=== PATIENT | female | born 1985 | race Caucasian/White ===

== ENCOUNTER 2017-10-07 18:30 | Emergency (ER) | payer MEDICAID ==
[2017-10-07] MEDS: ONDANSETRON 4 MG INJ IV (19:47)
[2017-10-07] MEDS: morphine 4 MG/ML VIAL IV (19:47)
[2017-10-07 20:03] LABS: ADD MAN DIFF? NO
[2017-10-07 20:04] LABS: BASOPHILS % 0.2 % (0.0-2.0); EOSINOPHILS # 0.1 10^3/ul (0.0-0.5); EOSINOPHILS % 0.5 % (0.0-7.0); HEMATOCRIT 39.8 % (37.0-47.0); HEMOGLOBIN 13.9 g/dl (12.0-16.0); LYMPHOCYTES # 1.7 10^3/ul (0.8-2.9); LYMPHOCYTES % 12.6 % (15.0-51.0); MEAN CORPUSCULAR HEMOGLOBIN 31.3 pg (29.0-33.0); MEAN CORPUSCULAR HGB CONC 34.9 g/dl (32.0-37.0); MEAN CORPUSCULAR VOLUME 89.6 fl (82.0-101.0); MEAN PLATELET VOLUME 11.8 fl (7.4-10.4); MONOCYTE # 0.6 10^3/ul (0.3-0.9); MONOCYTES % 4.5 % (0.0-11.0); NEUTROPHILS % 81.9 % (39.0-77.0); PLATELET COUNT 231 10^3/UL (140-415); RED BLOOD COUNT 4.44 10^6/ul (4.20-5.40); RED CELL DISTRIBUTION WIDTH 11.9 % (11.5-14.5)
[2017-10-07 20:04] LABS: WHITE BLOOD COUNT 13.5 10^3/ul (4.8-10.8)
[2017-10-07 20:22] LABS: ALANINE AMINOTRANSFERASE 163 IU/L (13-69); ALBUMIN 4.9 g/dl (3.3-4.9); ALBUMIN/GLOBULIN RATIO 1.36; ALKALINE PHOSPHATASE 69 IU/L (42-121); ANION GAP 19 (8-16); ASPARTATE AMINO TRANSFERASE 211 IU/L (15-46); BILIRUBIN,INDIRECT 0.5 mg/dl (0-1.1); BILIRUBIN,TOTAL 0.5 mg/dl (0.2-1.3); BLOOD UREA NITROGEN 14 mg/dl (7-20); CALCIUM 9.4 mg/dl (8.4-10.2); CARBON DIOXIDE 25 mmol/L (21-31); CHLORIDE 105 mmol/L (97-110); CREATININE 0.59 mg/dl (0.44-1.00); GLUCOSE 167 mg/dl (70-220); LIPASE 308 U/L (23-300); POTASSIUM 3.4 mmol/L (3.5-5.1); SODIUM 146 mmol/L (135-144); TOTAL PROTEIN 8.5 g/dl (6.1-8.1)
[2017-10-07 22:24] LABS: ADD UMIC YES; UR ASCORBIC ACID 40 mg/dL (NEGATIVE); UR BILIRUBIN (Dip) NEGATIVE (NEGATIVE); UR BLOOD (Dip) NEGATIVE (NEGATIVE); UR CLARITY CLEAR (CLEAR); UR COLOR YELLOW (YELLOW); UR GLUCOSE (Dip) 1+ mg/dL (NEGATIVE); UR KETONES (Dip) NEGATIVE (NEGATIVE); UR LEUKOCYTE ESTERASE (Dip) NEGATIVE Leu/ul (NEGATIVE); UR MUCUS MANY /HPF (NONE SEEN); UR NITRITE (Dip) NEGATIVE (NEGATIVE); UR RBC 3 /HPF (0-5); UR SPECIFIC GRAVITY (Dip) 1.027 (1.003-1.030); UR TOTAL PROTEIN (Dip) 1+ mg/dl (NEGATIVE); UR UROBILINOGEN (Dip) 1+ mg/dL (NEGATIVE); UR WBC 2 /HPF (0-5)
== END 2017-10-08 01:48 | disposition home or self-care (01) ==
LOC: FTE 10-08 01:48
DX: R10.84 Generalized abdominal pain (principal); R11.0 Nausea; R10.2 Pelvic and perineal pain
CPT/HCPCS: 36415; 74176; 80053; 81001; 81025; 83690; 85025; 96374; 96375; 99285-25

== ENCOUNTER 2017-10-09 09:05 | Inpatient (IN) | payer MEDICAID ==
[2017-10-09] MEDS: ONDANSETRON 4 MG INJ IV (09:37)
[2017-10-09] MEDS: morphine 4 MG/ML VIAL IV (09:38)
[2017-10-09] MEDS: SOD CHLORIDE 0.9% 1,000 ML IV (09:38)
[2017-10-09 09:49] LABS: ADD MAN DIFF? NO
[2017-10-09 09:51] LABS: WHITE BLOOD COUNT 8.6 10^3/ul (4.8-10.8)
[2017-10-09 09:51] LABS: BASOPHILS % 0.2 % (0.0-2.0); EOSINOPHILS % 0.3 % (0.0-7.0); HEMATOCRIT 40.8 % (37.0-47.0); HEMOGLOBIN 13.9 g/dl (12.0-16.0); LYMPHOCYTES # 1.1 10^3/ul (0.8-2.9); LYMPHOCYTES % 12.3 % (15.0-51.0); MEAN CORPUSCULAR HEMOGLOBIN 30.7 pg (29.0-33.0); MEAN CORPUSCULAR HGB CONC 34.1 g/dl (32.0-37.0); MEAN CORPUSCULAR VOLUME 90.1 fl (82.0-101.0); MEAN PLATELET VOLUME 11.6 fl (7.4-10.4); MONOCYTE # 0.2 10^3/ul (0.3-0.9); MONOCYTES % 2.7 % (0.0-11.0); NEUTROPHIL # 7.3 10^3/ul (1.6-7.5); NEUTROPHILS % 84.2 % (39.0-77.0); PLATELET COUNT 247 10^3/UL (140-415); RED BLOOD COUNT 4.53 10^6/ul (4.20-5.40); RED CELL DISTRIBUTION WIDTH 11.9 % (11.5-14.5)
[2017-10-09 10:02] LABS: ADD UMIC YES; UR ASCORBIC ACID 40 mg/dL (NEGATIVE); UR BILIRUBIN (Dip) NEGATIVE (NEGATIVE); UR BLOOD (Dip) NEGATIVE (NEGATIVE); UR CLARITY CLEAR (CLEAR); UR COLOR YELLOW (YELLOW); UR GLUCOSE (Dip) NEGATIVE (NEGATIVE); UR KETONES (Dip) 1+ mg/dL (NEGATIVE); UR LEUKOCYTE ESTERASE (Dip) NEGATIVE Leu/ul (NEGATIVE); UR MUCUS MODERATE /HPF (NONE SEEN); UR NITRITE (Dip) NEGATIVE (NEGATIVE); UR RBC 2 /HPF (0-5); UR SPECIFIC GRAVITY (Dip) 1.027 (1.003-1.030); UR TOTAL PROTEIN (Dip) 1+ mg/dl (NEGATIVE); UR UROBILINOGEN (Dip) 2+ mg/dL (NEGATIVE); UR WBC 3 /HPF (0-5)
[2017-10-09 10:20] LABS: ALANINE AMINOTRANSFERASE 313 IU/L (13-69); ALBUMIN 4.8 g/dl (3.3-4.9); ALBUMIN/GLOBULIN RATIO 1.41; ALKALINE PHOSPHATASE 87 IU/L (42-121); ANION GAP 18 (8-16); ASPARTATE AMINO TRANSFERASE 264 IU/L (15-46); BILIRUBIN,INDIRECT 0.5 mg/dl (0-1.1); BILIRUBIN,TOTAL 0.5 mg/dl (0.2-1.3); BLOOD UREA NITROGEN 14 mg/dl (7-20); CALCIUM 9.3 mg/dl (8.4-10.2); CARBON DIOXIDE 25 mmol/L (21-31); CHLORIDE 106 mmol/L (97-110); GLUCOSE 151 mg/dl (70-220); LIPASE 202 U/L (23-300); POTASSIUM 3.7 mmol/L (3.5-5.1); SODIUM 145 mmol/L (135-144); TOTAL PROTEIN 8.2 g/dl (6.1-8.1)
[2017-10-09 10:32] LABS: TROPONIN-I 0.021 ng/ml (0.000-0.120)
[2017-10-09] MEDS: HYDROmorphONE 0.5 MG/0.5 ML SYG IV ×2 (10:59→13:35)
[2017-10-09] MEDS: HYDROmorphONE 1 MG/5 ML IV SYRINGE IV (11:01)
[2017-10-09] MEDS: LIDOCAINE/MYLANTA 40 ML BTL PO (11:12)
[2017-10-09] MEDS: SOD CHLORIDE 0.9% 100 ML (11:51)
[2017-10-09] MEDS: IOHEXOL 300MG/ML 150 ML BTL (11:51)
[2017-10-09] MEDS ORDERED: HYDROmorphONE 1 MG/5 ML IV SYRINGE IV (13:01)
[2017-10-09] MEDS ORDERED: ACETAMINOPHEN 325 MG TAB PO ×2 (14:00→14:30)
[2017-10-09] MEDS ORDERED: ONDANSETRON 4 MG INJ IV ×2 (14:00→14:30)
[2017-10-09] MEDS ORDERED: LORAZEPAM 2 MG INJ IV (14:30)
[2017-10-09] MEDS ORDERED: NACL 0.9% 3 ML SYG IV (14:30)
[2017-10-09] MEDS ORDERED: morphine 2 MG INJ IV (14:30)
[2017-10-09] MEDS ORDERED: NITROGLYCERIN (SL) 0.4 MG TAB SL (14:30)
[2017-10-09] MEDS ORDERED: MAGNESIUM HYDROXIDE 30ML CUP PO (14:30)
[2017-10-09] MEDS ORDERED: NA PHOSPHATE/BIPHOS 133 ML ENEMA PR (14:30)
[2017-10-09] MEDS ORDERED: hydrALAzine 20 MG INJ IV (14:30)
[2017-10-09] MEDS ORDERED: DOCUSATE SODIUM 100 MG CAP PO (14:30)
[2017-10-09] MEDS ORDERED: ALBUTEROL/IPRATROPIUM (NEB) 3 ML AMP HHN (14:30)
[2017-10-09] MEDS: SOD CHLORIDE 0.45% 1,000 ML IV (15:27)
[2017-10-09 16:01] LABS: HAAIG REFLEX REFLEX FILED
[2017-10-09 16:24] LABS: INR 0.98; PROTIME 13.1 Sec (11.9-14.9)
[2017-10-09 16:25] LABS: PARTIAL THROMBOPLASTIN TIME 27.5 Sec (25.0-35.0)
[2017-10-09 16:34] LABS: ETHANOL < 10.0 mg/dl
[2017-10-09 16:36] LABS: FREE T4 (FREE THYROXINE) 1.27 ng/dl (0.79-2.35)
[2017-10-09 16:54] LABS: HEPATITIS B SURFACE ANTIGEN NEGATIVE (NEGATIVE)
[2017-10-09 17:14] LABS: HEPATITIS B CORE ANTIBODY NEGATIVE (NEGATIVE); HEPATITIS C VIRAL ANTIBODY NEGATIVE (NEGATIVE)
[2017-10-09] MEDS: HEPARIN 5,000 UNIT/0.5 ML VIAL SC (20:57)
[2017-10-10] MEDS: PANTOPRAZOLE (EC) 40 MG TAB PO (05:09)
[2017-10-10] MEDS: SOD CHLORIDE 0.45% 1,000 ML IV ×2 (05:09→17:08)
[2017-10-10 05:40] LABS: ADD MAN DIFF? NO
[2017-10-10 05:43] LABS: BASOPHILS % 0.6 % (0.0-2.0); EOSINOPHILS # 0.1 10^3/ul (0.0-0.5); EOSINOPHILS % 0.9 % (0.0-7.0); HEMATOCRIT 36.5 % (37.0-47.0); HEMOGLOBIN 12.5 g/dl (12.0-16.0); LYMPHOCYTES # 1.9 10^3/ul (0.8-2.9); LYMPHOCYTES % 35.7 % (15.0-51.0); MEAN CORPUSCULAR HEMOGLOBIN 30.9 pg (29.0-33.0); MEAN CORPUSCULAR HGB CONC 34.2 g/dl (32.0-37.0); MEAN CORPUSCULAR VOLUME 90.3 fl (82.0-101.0); MEAN PLATELET VOLUME 11.6 fl (7.4-10.4); MONOCYTE # 0.3 10^3/ul (0.3-0.9); MONOCYTES % 6.5 % (0.0-11.0); NEUTROPHILS % 56.3 % (39.0-77.0); PLATELET COUNT 188 10^3/UL (140-415); RED BLOOD COUNT 4.04 10^6/ul (4.20-5.40); RED CELL DISTRIBUTION WIDTH 12.1 % (11.5-14.5)
[2017-10-10 05:43] LABS: WHITE BLOOD COUNT 5.3 10^3/ul (4.8-10.8)
[2017-10-10 06:01] LABS: LIPASE 139 U/L (23-300)
[2017-10-10 06:11] LABS: CHOLESTEROL 209 mg/dl (100-200)
[2017-10-10 06:11] LABS: CHOL/HDL RATIO 4.3 RATIO; HDL CHOLESTEROL 48 mg/dl (34-82); LDL CHOLESTEROL,CALCULATED 135 mg/dl; TRIGLYCERIDES 132 mg/dl (0-149)
[2017-10-10 06:16] LABS: ANION GAP 12 (8-16); BLOOD UREA NITROGEN 7 mg/dl (7-20); CALCIUM 8.7 mg/dl (8.4-10.2); CARBON DIOXIDE 27 mmol/L (21-31); CHLORIDE 109 mmol/L (97-110); CREATININE 0.58 mg/dl (0.44-1.00); GLUCOSE 93 mg/dl (70-220); MAGNESIUM 2.5 mg/dl (1.7-2.5); PHOSPHORUS 3.1 mg/dl (2.5-4.9); POTASSIUM 3.2 mmol/L (3.5-5.1); SODIUM 145 mmol/L (135-144)
[2017-10-10 07:10] LABS: HEMOGLOBIN A1C 5.6 % (0-5.9)
[2017-10-10] MEDS: HEPARIN 5,000 UNIT/0.5 ML VIAL SC ×2 (08:07→20:50)
[2017-10-10] MEDS: POTASSIUM CHLORIDE (SR) 20 MEQ TAB PO (16:28)
[2017-10-10] MEDS: HYDROCODONE/APAP (5/325) TAB PO (16:28)
[2017-10-10] MEDS: INDOMETHACIN 50 MG SUPP PR (17:30)
[2017-10-11] MEDS: SOD CHLORIDE 0.45% 1,000 ML IV ×2 (03:00→13:10)
[2017-10-11] MEDS: PANTOPRAZOLE (EC) 40 MG TAB PO (05:30)
[2017-10-11 06:14] LABS: ADD MAN DIFF? NO
[2017-10-11 06:16] LABS: WHITE BLOOD COUNT 4.7 10^3/ul (4.8-10.8)
[2017-10-11 06:16] LABS: BASOPHILS % 0.6 % (0.0-2.0); EOSINOPHILS # 0.1 10^3/ul (0.0-0.5); EOSINOPHILS % 2.8 % (0.0-7.0); HEMATOCRIT 36.6 % (37.0-47.0); HEMOGLOBIN 12.3 g/dl (12.0-16.0); LYMPHOCYTES # 1.8 10^3/ul (0.8-2.9); LYMPHOCYTES % 37.9 % (15.0-51.0); MEAN CORPUSCULAR HEMOGLOBIN 30.7 pg (29.0-33.0); MEAN CORPUSCULAR HGB CONC 33.6 g/dl (32.0-37.0); MEAN CORPUSCULAR VOLUME 91.3 fl (82.0-101.0); MEAN PLATELET VOLUME 12.2 fl (7.4-10.4); MONOCYTE # 0.3 10^3/ul (0.3-0.9); NEUTROPHIL # 2.5 10^3/ul (1.6-7.5); NEUTROPHILS % 52.7 % (39.0-77.0); PLATELET COUNT 175 10^3/UL (140-415); RED BLOOD COUNT 4.01 10^6/ul (4.20-5.40)
[2017-10-11 06:55] LABS: ANION GAP 13 (8-16); BLOOD UREA NITROGEN 9 mg/dl (7-20); CALCIUM 8.6 mg/dl (8.4-10.2); CARBON DIOXIDE 25 mmol/L (21-31); CHLORIDE 108 mmol/L (97-110); CREATININE 0.62 mg/dl (0.44-1.00); GLUCOSE 79 mg/dl (70-220); POTASSIUM 3.9 mmol/L (3.5-5.1); SODIUM 142 mmol/L (135-144)
[2017-10-11] MEDS ORDERED: LIDOCAINE 2% (SDV) 5 ML INJ (07:00)
[2017-10-11] MEDS ORDERED: CEFAZOLIN 1 GM INJ (07:00)
[2017-10-11] MEDS: HEPARIN 5,000 UNIT/0.5 ML VIAL SC ×3 (09:00→20:49)
[2017-10-11] MEDS ORDERED: FENTAnyl 50 MCG/ML VIAL (10:16)
[2017-10-11] MEDS ORDERED: MIDAZOLAM 1 MG/ML 2 ML INJ (10:16)
[2017-10-11] MEDS ORDERED: METOCLOPRAMIDE 10 MG INJ (10:18)
[2017-10-11] MEDS ORDERED: PROPOFOL 20 ML (10:40)
[2017-10-11] MEDS ORDERED: SUCCINYLCHOLINE CHLORIDE 100 MG/5 ML SYG IV (10:40)
[2017-10-11] MEDS: HYDROCODONE/APAP (5/325) TAB PO (14:45)
[2017-10-11] MEDS ORDERED: morphine LIQ (10 MG/5 ML) CUP PO (15:30)
[2017-10-12] MEDS: SOD CHLORIDE 0.45% 1,000 ML IV (05:34)
[2017-10-12] MEDS: PANTOPRAZOLE (EC) 40 MG TAB PO (05:37)
[2017-10-12 06:09] LABS: ADD MAN DIFF? NO
[2017-10-12 06:26] LABS: WHITE BLOOD COUNT 6.4 10^3/ul (4.8-10.8)
[2017-10-12 06:26] LABS: BASOPHILS % 0.3 % (0.0-2.0); EOSINOPHILS % 0.3 % (0.0-7.0); HEMATOCRIT 36.9 % (37.0-47.0); HEMOGLOBIN 12.7 g/dl (12.0-16.0); LYMPHOCYTES % 30.5 % (15.0-51.0); MEAN CORPUSCULAR HEMOGLOBIN 31.1 pg (29.0-33.0); MEAN CORPUSCULAR HGB CONC 34.4 g/dl (32.0-37.0); MEAN CORPUSCULAR VOLUME 90.2 fl (82.0-101.0); MONOCYTE # 0.4 10^3/ul (0.3-0.9); MONOCYTES % 5.5 % (0.0-11.0); NEUTROPHIL # 4.1 10^3/ul (1.6-7.5); NEUTROPHILS % 63.2 % (39.0-77.0); PLATELET COUNT 200 10^3/UL (140-415); RED BLOOD COUNT 4.09 10^6/ul (4.20-5.40); RED CELL DISTRIBUTION WIDTH 11.7 % (11.5-14.5)
[2017-10-12 06:39] LABS: ANION GAP 11 (8-16); BLOOD UREA NITROGEN 6 mg/dl (7-20); CARBON DIOXIDE 26 mmol/L (21-31); CHLORIDE 107 mmol/L (97-110); CREATININE 0.52 mg/dl (0.44-1.00); GLUCOSE 87 mg/dl (70-220); POTASSIUM 3.7 mmol/L (3.5-5.1); SODIUM 140 mmol/L (135-144)
[2017-10-12] MEDS: HEPARIN 5,000 UNIT/0.5 ML VIAL SC (08:36)
== END 2017-10-12 18:57 | disposition home or self-care (01) | DRG 395 ==
LOC: FTE 09:05 → PP2 13:32
PROC: 0FC98ZZ Extirpation of Matter from Common Bile Duct, Via Natural or Artificial Opening Endoscopic (ICD-10-PCS; principal; 2017-10-11 10:50)
DX: K91.86 Retained cholelithiasis following cholecystectomy (principal)
CPT/HCPCS: 36415; 74177; 74181; 74330; 76705; 80048; 80053; 80061; 80307; 81001; 81025; 83036; 83690; 83735; 84100; 84439; 84443; 84484; 85025; 85610; 85730; 86704; 86709; 86803; 87340; 93005; 96374; 96375; 96376; 99285-25; G0378

== ENCOUNTER 2018-10-27 08:38 | Emergency (ER) | payer MEDICAID ==
[2018-10-27] MEDS: DIPHTH/TET/ACEL PERTUSS (ADULT) 0.5 ML VIAL IM* (09:13)
== END 2018-10-27 09:26 | disposition home or self-care (01) ==
LOC: FTE 09:26
DX: L03.115 Cellulitis of right lower limb (principal); Z23 Encounter for immunization
CPT/HCPCS: 90471; 90715; 99283-25